=== PATIENT | male | born 1940 | race Caucasian/White ===

== ENCOUNTER → 2016-10-19 | Outpatient (REF) | payer MEDICARE ==
[2016-10-19 12:31] LABS: ALBUMIN 4.3 GM/DL (3.2-5.2); ALBUMIN/GLOBULIN RATIO 1.26 (1.00-1.93); ALKALINE PHOSPHATASE 44 U/L (45-117); ALT/SGPT 43 U/L (12-78); ANION GAP 8 MEQ/L (8-16); AST/SGOT 23 U/L (15-37); BILIRUBIN,TOTAL 0.5 MG/DL (0.2-1.0); BLOOD UREA NITROGEN 16 MG/DL (7-18); CALCIUM LEVEL 9.3 MG/DL (8.8-10.2); CARBON DIOXIDE LEVEL 30 MEQ/L (21-32); CHLORIDE LEVEL 101 MEQ/L (98-107); CHOLESTEROL LEVEL 112 MG/DL (<200); CREATININE FOR GFR 0.98 MG/DL (0.70-1.30); GLOMERULAR FILTRATION RATE > 60.0 (>42); GLUCOSE, FASTING 145 MG/DL (83-110); POTASSIUM SERUM 4.3 MEQ/L (3.5-5.1); SODIUM LEVEL 139 MEQ/L (136-145); TOTAL PROTEIN 7.7 GM/DL (6.4-8.2); TRIGLYCERIDES LEVEL 124 MG/DL (<150)
[2016-10-20 14:14] LABS: PSA % FREE 10.4 % (.); PSA FREE 0.59 ng/mL; PSA TOTAL 5.7 ng/mL (0.0-4.0)
== END ==
LOC: M SFHCCLAY 09:18
PROVIDERS: ATTEND Family Medicine
DX: E78.2 Mixed hyperlipidemia (principal); E11.9 Type 2 diabetes mellitus without complications; I10 Essential (primary) hypertension; R97.20 Elevated prostate specific antigen [PSA]

== ENCOUNTER → 2017-02-25 | Outpatient (REF) | payer MEDICARE ==
[~2017-02-25] MED LIST: ATOR1TAB21 PO; CARV6.25 PO; CLOP75TA2 PO; ELIQ5TAB PO; FLAXPOW PO; GABA-279 PO; INDA125TA PO; JANU100T PO; JARD1TAB3 PO; LOSA100T36 PO; METF500T4 PO; POTA10TAB PO
[2017-02-25 18:51] LABS: CALCIUM LEVEL 9.6 MG/DL (8.8-10.2); CREATININE FOR GFR 1.25 MG/DL (0.70-1.30); GLOMERULAR FILTRATION RATE 59.9 (>42); POTASSIUM SERUM 4.4 MEQ/L (3.5-5.1)
[2017-02-25 19:04] LABS: BASO % 0.5 % (0.0-1.0); EOS % 0.2 % (0.0-3.0); LARGE UNSTAINED CELL # 0.1 K/mm3 (0.0-0.4); LARGE UNSTAINED CELL % 1.3 % (0.0-4.0); LYMPH # 1.7 K/mm3 (1.5-4.5); LYMPH % 24.2 % (24.0-44.0); MEAN CORPUSCULAR HEMOGLOBIN 31.7 pg (27.0-33.0); MEAN CORPUSCULAR HGB CONC 33.7 g/dl (32.0-36.5); MEAN CORPUSCULAR VOLUME 94.1 fl (80.0-96.0); NEUTROPHILS % 58.8 % (36.0-66.0); PLATELET COUNT, AUTOMATED 331 k/mm3 (150-450); RED CELL DISTRIBUTION WIDTH 14.9 % (11.5-14.5); WHITE BLOOD COUNT 6.8 K/mm3 (4.0-10.0)
== END ==
LOC: M SFHCPLAZ 15:54
PROVIDERS: ATTEND Physician Assistant Medical
DX: E11.8 Type 2 diabetes mellitus with unspecified complications (principal); N18.2 Chronic kidney disease, stage 2 (mild); I25.2 Old myocardial infarction

== ENCOUNTER → 2017-03-24 | Outpatient (REF) | payer MEDICARE ==
[2017-03-24 12:13] LABS: ALBUMIN/GLOBULIN RATIO 1.33 (1.00-1.93); ALKALINE PHOSPHATASE 47 U/L (45-117); ALT/SGPT 27 U/L (12-78); ANION GAP 7 MEQ/L (8-16); AST/SGOT 18 U/L (15-37); BILIRUBIN,TOTAL 0.7 MG/DL (0.2-1.0); BLOOD UREA NITROGEN 10 MG/DL (7-18); CALCIUM LEVEL 9.1 MG/DL (8.8-10.2); CARBON DIOXIDE LEVEL 27 MEQ/L (21-32); CHLORIDE LEVEL 108 MEQ/L (98-107); CHOLESTEROL LEVEL 77 MG/DL (<200); CREATININE FOR GFR 0.96 MG/DL (0.70-1.30); GLOMERULAR FILTRATION RATE > 60.0 (>42); GLUCOSE, FASTING 100 MG/DL (83-110); MAGNESIUM LEVEL 2.3 MG/DL (1.8-2.4); PERCENT SATURATION 26.6 % (19.7-50.0); POTASSIUM SERUM 4.5 MEQ/L (3.5-5.1); SODIUM LEVEL 142 MEQ/L (136-145); TOTAL IRON BINDING CAPACITY 304 UG/DL (250-450); TRIGLYCERIDES LEVEL 135 MG/DL (<150)
[2017-03-25 14:15] LABS: PSA % FREE 8.8 % (.); PSA FREE 0.36 ng/mL; PSA TOTAL 4.1 ng/mL (0.0-4.0)
== END ==
LOC: M SFHCCLAY 09:30
PROVIDERS: ATTEND Family Medicine
DX: E78.5 Hyperlipidemia, unspecified (principal); E11.8 Type 2 diabetes mellitus with unspecified complications; I10 Essential (primary) hypertension; E55.9 Vitamin D deficiency, unspecified; N18.2 Chronic kidney disease, stage 2 (mild)

== ENCOUNTER 2017-04-23 13:06 | Outpatient (RCR) | payer MEDICARE ==
[2017-05-13] MEDS ORDERED: LOSA100T36 PO (13:32)
[2017-05-13] MEDS ORDERED: ATOR1TAB21 PO (13:32)
[2017-05-13] MEDS ORDERED: ELIQ5TAB PO (13:32)
[2017-05-13] MEDS ORDERED: JANU100T PO (13:32)
[2017-05-13] MEDS ORDERED: POTA10TAB PO (13:32)
[2017-05-13] MEDS ORDERED: GABA-279 PO (13:32)
[2017-05-13] MEDS ORDERED: CARV6.25 PO (13:32)
[2017-05-13] MEDS ORDERED: JARD1TAB3 PO (13:32)
[2017-05-13] MEDS ORDERED: METF500T4 PO (13:32)
[2017-05-13] MEDS ORDERED: CLOP75TA2 PO (13:32)
[2017-05-13] MEDS ORDERED: FLAXPOW PO (13:32)
== END 2017-04-24 ==
LOC: M CR 13:06
PROVIDERS: ATTEND Internal Medicine Cardiovascular Disease
DX: Z51.89 Encounter for other specified aftercare (principal); Z95.5 Presence of coronary angioplasty implant and graft
CPT/HCPCS: 93797; 93798; 97110; 97162; G8978; G8979

== ENCOUNTER 2017-04-23 13:45 | Outpatient (RCR) | payer MEDICARE ==
[2017-05-13] MEDS ORDERED: GABA-279 PO (13:32)
[2017-05-13] MEDS ORDERED: ELIQ5TAB PO (13:32)
[2017-05-13] MEDS ORDERED: FLAXPOW PO (13:32)
[2017-05-13] MEDS ORDERED: JANU100T PO (13:32)
[2017-05-13] MEDS ORDERED: ATOR1TAB21 PO (13:32)
[2017-05-13] MEDS ORDERED: JARD1TAB3 PO (13:32)
[2017-05-13] MEDS ORDERED: METF500T4 PO (13:32)
[2017-05-13] MEDS ORDERED: CLOP75TA2 PO (13:32)
[2017-05-13] MEDS ORDERED: CARV6.25 PO (13:32)
[2017-05-13] MEDS ORDERED: LOSA100T36 PO (13:32)
[2017-05-13] MEDS ORDERED: POTA10TAB PO (13:32)
== END 2017-04-24 ==
LOC: M PT 13:45
PROVIDERS: ATTEND Family Medicine
DX: Z51.89 Encounter for other specified aftercare (principal); M47.816 Spondylosis without myelopathy or radiculopathy, lumbar region
CPT/HCPCS: 97110; 97162; G8978; G8979

== ENCOUNTER 2017-05-14 10:18 | Day surgery (SDC) | payer MEDICARE ==
[2017-05-14] VITALS (7 sets, daily range): BP systolic 138–183; BP diastolic 60–88
[~2017-05-14] VITALS: Ht 175.3 cm; Wt 94.5 kg
[2017-05-14] MEDS: **UNRESOLVED NON-FORMULARY MED ORDER XX SCH (00:01)
[~2017-05-14 10:18] MED LIST changes: -INDA125TA PO
[2017-05-14] MEDS ORDERED: LIDOCAINE 1% SDV 5 ML VIAL SQ ONE (10:30)
[2017-05-14] MEDS ORDERED: LR 1,000 ML IV SCH ×2 (10:30→16:15)
[2017-05-14] MEDS ORDERED: VANCOMYCIN 1000 MG/20 ML VIAL (J3370) As Ordered ONE (12:15)
[2017-05-14] MEDS ORDERED: LIDOCAINE 1% SDV INJ 30 ML VIAL As Ordered ONE (12:15)
[2017-05-14] MEDS ORDERED: MUPIROCIN 2% OINT 22 GM TUBE As Ordered ONE (12:15)
[2017-05-14] MEDS ORDERED: ISOVUE-300 61% 50ML VIAL (Q9967) As Ordered ONE (12:15)
[2017-05-14] MEDS ORDERED: MIDAZOLAM INJ 2 MG/2 ML VIAL (J2250) As Ordered ONE (12:25)
[2017-05-14] MEDS ORDERED: fentaNYL 100 MCG/2 ML INJECTION (J3010) As Ordered ONE (12:25)
--- NOTE | 2017-05-14 15:14 | REP ---
PACEMAKER, FLUORO, ONE VIEW: HISTORY: Pacemaker insertion. A single radiograph was obtained of the C-arm. The patient is status post pacemaker insertion. Fluoro time: 6 minutes 23 seconds. IMPRESSION: The patient is status post pacemaker insertion. Signed by Tyrone Perez MD 05/14/2017 03:18 P
--- NOTE | 2017-05-14 15:28 | REP ---
Chest one-view HISTORY: Pacemaker insertion Comparison: 01/04/2008 Linear densities are present in the left lower lobe consistent with scar. The right lung is clear . The cardiac silhouette is enlarged. The pulmonary vasculature is normal in appearance. The patient is status post pacemaker insertion. There is no pneumothorax. Impression: 1. Cardiomegaly. 2. The patient is status post pacemaker insertion. Signed by Tyrone Perez MD 05/14/2017 03:20 P
--- NOTE | 2017-05-14 15:57 | RO ---
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 OPERATIVE PROCEDURE: Implantation of a permanent dual chamber pacemaker ([employer]). SURGEON: Rob Gillis MD SOFTWARE PERFORMANCE ENGINEER: None. ANESTHESIA: Lidocaine 1% local/monitored anesthetic care. SPECIMENS: None. ESTIMATED BLOOD LOSS: Less than 15 mL. BLOOD PRODUCTS REPLACED: None. DRAINS: None. COMPLICATIONS: None. DESCRIPTION OF OPERATION: The patient was prepped and draped over the left pectoral region. Clear non-iodine plastic film was applied over the surgical region. Lidocaine 1% was used for local anesthetic. A left subclavian venogram was performed using 20 mL consisting of three parts contrast, one part normal saline and injected via a left antecubital vein and this was used in real time to get into the left subclavian vein under fluoroscopy in real time by percutaneous technique using a micropuncture needle. This was then guidewire exchanged for a guidewire that came with one of the #8-Chadian sheaths. Next, incision was made with a PEAK PlasmaBlade through the skin to make an incision approximately 2.5 inches in length and roughly parallel to the left clavicle, 1 cm below the skin entry site of the guidewire. The PEAK PlasmaBlade was used to get through the fatty layer and the fibrous Lorie's fascia. The pacemaker pocket was then formed in a caudal direction using blunt dissection using two fingers to separate the prepectoral fascia from the Lorie's fascia. Next, the guidewire was pulled through the skin into the incision site. Next, I used another micropuncture needle and obtained separate venous access at the level of te pectoral muscle more lateral to the first guidewire using the first guidewire as a fluoroscopic marker. This was then guidewire exchanged for a guidewire that came with the other #8-Chadian sheath. Next, an #8-Chadian sheath was placed over the more lateral of the guidewires and advanced into the left subclavian vein. It was used for vein access for the right ventricle lead. The right ventricle lead was advanced into the right ventricle under fluoroscopic guidance and the first position was not satisfactory with regards to pacing threshold. The lead was unscrewed and then a second position somewhere near the right ventricle apex was used and was extended 10 turns for the [place] screw. This position was found to be electrically and anatomically satisfactory and no diaphragm stimulation could be palpated on either side at 10 volts high open pacing. The #8-Chadian sheath was broken apart and the ventricle lead was secured to the pectoral muscle using #3-0 Vicryl to secure to the pectoral muscle using there separate sutures, one for each notch. Next, the other #8-Chadian sheath was applied over the more medial of the guidewires and was used for vein access for the right atrial lead. The first position I tried for the right atrial lead was not satisfactory electrically and therefore a second position was tried. The [place] was extended 10 turns. This position was found to be electrically and anatomically satisfactory. The #8-Chadian sheath was broken apart and the atrial lead was secured to the pectoral muscle using three individual sutures consisting of #0 Ethibond. Next, another #0 Ethibond suture was placed into the pectoral muscle to serve as a tie down for the pacemaker pulse generator. Next, the excess lead material was coiled underneath the pacemaker pulse generator and placed along with the pacemaker pulse generator into the pacemaker pocket with the excess lead material and pacemaker pulse generator on top. Next, I took a medium sized TYRX antimicrobial envelope and cut it into four pieces and placed those pieces on top of the pulse generator in the pacemaker pocket. The deep layer was closed using individual sutures consisting of #2-0 Vicryl. The skin was closed using teressa. The patient tolerated the procedure well without any immediate complications. The pacemaker pulse generator implanted was a [employer] MRI, model #[id number], with serial #[id number]. The right ventricle lead implanted was a [employer] Tendril MRI, model CMS8426H, 58 cm with serial number #[id number]. Final testing in the operating room with the PSA analyzer for the right ventricle lead in bipolar configuration showed capture threshold of 0.8 volts in 0.4 ms with R wave amplitude of 19.9 mV and lead impedance of 926 ohms. The right atrial lead implanted was a [employer] Tendril MRI, model #[id number], 52 cm in length and serial #[id number]. Final testing in bipolar configuration in the operating room with the PSA analyzer for the right atrial lead showed capture threshold of 2.2 volts at 0.4 ms with P wave amplitude of 2.9 mV and lead impedance of 733 ohms.
[2017-05-14] MEDS ORDERED: fentaNYL 100 MCG/2 ML INJECTION (J3010) IV PRN (16:15)
[2017-05-14] MEDS ORDERED: ONDANSETRON 4MG/2ML VIAL (J2405) IV PRN (16:15)
[2017-05-14] MEDS ORDERED: PERCOCET 5MG/325MG TAB PO PRN (16:15)
[2017-05-14] MEDS: ACETAMINOPHEN TAB 650MG DOSE (2X325MG) PO PRN ×2 (17:52→21:51)
[2017-05-14] MEDS: metFORMIN XR 500MG TAB *GLUCOPHAGE XR PO SCH (18:11)
--- NOTE | 2017-05-14 20:13 | ECGEPIP ---
Stationary ECG Study [facility] Test Date: 2017-05-14 Pat Name: SHAI CALZADA Department: Room: - Gender: M Dead Mail Checker: NARCISO : 1940 Requested By: Rob Gillis Order Number: [id number] Reading MD: Rob Gillis Measurements Intervals [place] Rate: 84 P: 112 [place]: 90 QRS: -70 QRSD: 160 T: 113 QT: 443 QTc: 526 Interpretive Statements Sinus rhythm, P-synchronous ventricular pacing. ABNORMAL RHYTHM ECG Electronically Signed On 05-14-2017 20:13:16 EDT by Rob Gillis
[2017-05-14] MEDS ORDERED: ATORVASTATIN 20 MG TAB PO SCH (21:00)
[2017-05-14] MEDS ORDERED: GABAPENTIN 100 MG CAP PO SCH (21:00)
[2017-05-14] MEDS: CARVedilol 6.25 MG TAB PO SCH (21:41)
[2017-05-14] MEDS: POTASSIUM CITRATE 1080 MG (10MEQ) TAB PO SCH (21:42)
[2017-05-14] MEDS: ASCORBIC ACID 250 MG TAB PO SCH (21:43)
[2017-05-15 04:00] VITALS: BP 130/68
[2017-05-15] MEDS: ACETAMINOPHEN TAB 650MG DOSE (2X325MG) PO PRN (05:36)
[2017-05-15] MEDS: **UNRESOLVED NON-FORMULARY MED ORDER XX SCH (07:12)
--- NOTE | 2017-05-15 08:08 | REP ---
PA and lateral chest: Comparisons 05/14/2017. Dual-chamber pacemaker with skin teressa adjacent to the pacemaker pack is again identified. There is no pneumothorax or hemothorax. There is minor discoid atelectasis inferiorly in the left lung. Lung lopes otherwise clear. Cardiac size normal. The rich, mediastinum, and bony thorax are unremarkable. Signed by Otis Presley MD 05/15/2017 08:00 A
[2017-05-15] MEDS: metFORMIN XR 500MG TAB *GLUCOPHAGE XR PO SCH (08:33)
[2017-05-15 08:37] VITALS: BP 160/88
[2017-05-15] MEDS: CARVedilol 6.25 MG TAB PO SCH (08:37)
[2017-05-15] MEDS: ASCORBIC ACID 250 MG TAB PO SCH (08:37)
[2017-05-15] MEDS: POTASSIUM CITRATE 1080 MG (10MEQ) TAB PO SCH (08:37)
[2017-05-15] MEDS ORDERED: CLOPIDOGREL 75 MG TAB PO SCH (09:00)
[2017-05-15] MEDS ORDERED: LOSARTAN 50 MG TAB PO SCH (09:00)
[2017-05-15] MEDS ORDERED: SITagliptin 50 MG TAB (JANUVIA) PO SCH (09:00)
[2017-05-15] MEDS ORDERED: INDAPAMIDE 1.25MG TABLET PO SCH (09:00)
[2017-05-15] MEDS ORDERED: INDA125TA PO (12:12)
== END 2017-05-15 13:56 | disposition home or self-care (01) ==
LOC: M SDC 10:18 → M PCU 16:50 → M SDC 05-15 13:56
PROVIDERS: ATTEND Internal Medicine Cardiovascular Disease
DX: R55 Syncope and collapse (principal); I45.10 Unspecified right bundle-branch block; I45.2 Bifascicular block; I25.10 Atherosclerotic heart disease of native coronary artery without angina pectoris; I21.4 Non-ST elevation (NSTEMI) myocardial infarction; I35.0 Nonrheumatic aortic (valve) stenosis; I11.9 Hypertensive heart disease without heart failure; E66.9 Obesity, unspecified; E11.9 Type 2 diabetes mellitus without complications; N20.0 Calculus of kidney; E78.00 Pure hypercholesterolemia, unspecified; M12.9 Arthropathy, unspecified; G43.909 Migraine, unspecified, not intractable, without status migrainosus; Z91.048 Other nonmedicinal substance allergy status; Z79.899 Other long term (current) drug therapy; Z79.01 Long term (current) use of anticoagulants; Z86.718 Personal history of other venous thrombosis and embolism; Z87.442 Personal history of urinary calculi; Z95.5 Presence of coronary angioplasty implant and graft; Z85.828 Personal history of other malignant neoplasm of skin
CPT/HCPCS: 33208; 71010; 71020; 76000; 93005; C1785; C1882; C1898; J0690; J2250; J3010; Q9967

== ENCOUNTER 2017-06-21 13:45 | Outpatient (RCR) | payer MEDICARE ==
[~2017-06-21 13:45] MED LIST changes: +INDA125TA PO
== END 2017-06-24 ==
LOC: M PT 13:45
PROVIDERS: ATTEND Family Medicine
DX: Z51.89 Encounter for other specified aftercare (principal); M47.816 Spondylosis without myelopathy or radiculopathy, lumbar region
CPT/HCPCS: 97110; 97112; 97162; G8978; G8979; G8980

== ENCOUNTER 2017-06-23 14:58 | Outpatient (RCR) | payer MEDICARE | END 2017-06-24 | LOC: M CR 14:58 | PROVIDERS: ATTEND Internal Medicine Cardiovascular Disease | DX: Z95.5 Presence of coronary angioplasty implant and graft (principal) ==

== ENCOUNTER → 2017-10-04 | Outpatient (REF) | payer MEDICARE ==
[2017-10-04 11:18] LABS: BASO % 0.4 % (0.0-1.0); HEMATOCRIT 43.5 % (42.0-52.0); HEMOGLOBIN 14.3 g/dl (14.0-18.0); LYMPH # 1.4 10^3/uL (1.5-4.5); LYMPH % 29.3 % (24.0-44.0); MEAN CORPUSCULAR HEMOGLOBIN 31.8 pg (27.0-33.0); MEAN CORPUSCULAR HGB CONC 32.9 g/dl (32.0-36.5); MEAN CORPUSCULAR VOLUME 96.7 fl (80.0-96.0); MONO % 20.2 % (0.0-5.0); NEUTROPHILS # 2.4 10^3/uL (1.8-7.7); NEUTROPHILS % 49.1 % (36.0-66.0); PLATELET COUNT, AUTOMATED 179 10^3/uL (150-450); RED CELL DISTRIBUTION WIDTH 13.3 % (11.5-14.5); WHITE BLOOD COUNT 4.8 10^3/uL (4.0-10.0)
[2017-10-04 11:47] LABS: ESTIMATED AVERAGE GLUCOSE 140 MG/DL (60-110); HEMOGLOBIN A1c 6.5 %
[2017-10-04 11:55] LABS: ALBUMIN 4.4 GM/DL (3.2-5.2); ALBUMIN/GLOBULIN RATIO 1.52 (1.00-1.93); ALKALINE PHOSPHATASE 37 U/L (45-117); ALT/SGPT 49 U/L (12-78); ANION GAP 8 MEQ/L (8-16); AST/SGOT 27 U/L (7-37); BILIRUBIN,TOTAL 0.5 MG/DL (0.2-1.0); BLOOD UREA NITROGEN 18 MG/DL (7-18); CALCIUM LEVEL 9.3 MG/DL (8.8-10.2); CARBON DIOXIDE LEVEL 29 MEQ/L (21-32); CHLORIDE LEVEL 102 MEQ/L (98-107); CREATININE FOR GFR 0.95 MG/DL (0.70-1.30); FERRITIN 70 NG/ML (26-388); GLOMERULAR FILTRATION RATE > 60.0 (>42); GLUCOSE, FASTING 123 MG/DL (70-100); IRON (FE) 80 UG/DL (65-175); MAGNESIUM LEVEL 2.1 MG/DL (1.8-2.4); PERCENT SATURATION 24.5 % (19.7-50.0); SODIUM LEVEL 139 MEQ/L (136-145); TOTAL IRON BINDING CAPACITY 326 UG/DL (250-450); TOTAL PROTEIN 7.3 GM/DL (6.4-8.2)
[2017-10-04 12:40] LABS: PTH INTACT 91.6 PG/ML (18.5-88.0); TOTAL 25(OH) VITAMIN D 25.1 NG/ML (30.0-100.0); VITAMIN B12 LEVEL 194 PG/ML (247-911)
== END ==
LOC: M SFHCPLAZ 09:05 → M SFHCCLAY 09:18
DX: Z86.711 Personal history of pulmonary embolism (principal); N18.2 Chronic kidney disease, stage 2 (mild); E11.8 Type 2 diabetes mellitus with unspecified complications; E55.9 Vitamin D deficiency, unspecified
CPT/HCPCS: 83550

== ENCOUNTER → 2018-02-04 | Outpatient (REF) | payer MEDICARE ==
[2018-02-04 11:36] LABS: BASO % 0.3 % (0.0-1.0); HEMATOCRIT 41.5 % (42.0-52.0); HEMOGLOBIN 14.2 g/dl (13.5-17.5); IMMATURE GRANULOCYTE % 0.6 % (0-3.0); LYMPH # 1.6 10^3/uL (1.5-4.5); LYMPH % 22.9 % (24.0-44.0); MEAN CORPUSCULAR HEMOGLOBIN 32.2 pg (27.0-33.0); MEAN CORPUSCULAR HGB CONC 34.2 g/dl (32.0-36.5); MEAN CORPUSCULAR VOLUME 94.1 fl (80.0-96.0); MONO # 1.2 10^3/uL (0.0-0.8); MONO % 17.6 % (0.0-5.0); NEUTROPHILS % 58.6 % (36.0-66.0); PLATELET COUNT, AUTOMATED 217 10^3/uL (150-450); RED BLOOD COUNT 4.41 10^6/uL (4.30-6.10); RED CELL DISTRIBUTION WIDTH 13.6 % (11.5-14.5); WHITE BLOOD COUNT 6.8 10^3/uL (4.0-10.0)
[2018-02-04 11:42] LABS: HEMATOCRIT 41.9 % (42.0-52.0)
[2018-02-04 11:55] LABS: ESTIMATED AVERAGE GLUCOSE 160 MG/DL (60-110); HEMOGLOBIN A1c 7.2 %
[2018-02-04 12:09] LABS: ALBUMIN 4.2 GM/DL (3.2-5.2); ALKALINE PHOSPHATASE 41 U/L (45-117); ALT/SGPT 39 U/L (12-78); ANION GAP 9 MEQ/L (8-16); AST/SGOT 18 U/L (7-37); BILIRUBIN,TOTAL 0.9 MG/DL (0.2-1.0); BLOOD UREA NITROGEN 18 MG/DL (7-18); CALCIUM LEVEL 9.4 MG/DL (8.8-10.2); CARBON DIOXIDE LEVEL 27 MEQ/L (21-32); CHLORIDE LEVEL 104 MEQ/L (98-107); CREATININE FOR GFR 0.95 MG/DL (0.70-1.30); GLOMERULAR FILTRATION RATE > 60.0 (>42); GLUCOSE, FASTING 129 MG/DL (70-100); POTASSIUM SERUM 4.6 MEQ/L (3.5-5.1); PROSTATIC SPECIFIC AG MONITOR 7.48 NG/ML (< 4.0); SODIUM LEVEL 140 MEQ/L (136-145); TOTAL PROTEIN 7.7 GM/DL (6.4-8.2)
[2018-02-04 12:14] LABS: VITAMIN B12 LEVEL 584 PG/ML (247-911)
[2018-02-04 13:38] LABS: PRETREATED FOLATE FOR RBCFOL 16.3 NG/ML; RBC FOLATE 816.9 NG/ML (280-791)
[2018-02-07 14:58] LABS: ALBUMIN 4.54 GM/DL (3.29-5.55); ALPHA-1-GLOBULIN % 3.6 % (2.9-4.9); ALPHA-1-GLOBULINS 0.28 GM/DL (0.17-0.41); ALPHA-2-GLOBULINS 0.99 GM/DL (0.42-0.99); ALPHA-2-GLOBULINS % 12.9 % (7.1-11.8); BETA-1-GLOBULINS % 6.5 % (4.7-7.2); BETA-2-GLOBULINS 0.35 GM/DL (0.19-0.55); BETA-2-GLOBULINS % 4.6 % (3.2-6.5); GAMMA GLOBULIN % 13.4 % (11.1-18.8); GAMMA GLOBULINS 1.03 GM/DL (0.65-1.58)
== END ==
LOC: M SFHCCLAY 09:25
DX: E53.8 Deficiency of other specified B group vitamins (principal); E11.8 Type 2 diabetes mellitus with unspecified complications; R97.20 Elevated prostate specific antigen [PSA]
CPT/HCPCS: 84165

== ENCOUNTER → 2018-02-22 | Outpatient (REF) | payer MEDICARE, OTHER | LOC: M SMT 13:09 | DX: R97.20 Elevated prostate specific antigen [PSA] (principal); Z79.899 Other long term (current) drug therapy | CPT/HCPCS: 87086 ==

== ENCOUNTER → 2018-03-10 | Outpatient (CLI) | payer OTHER | LOC: M RAD 11:47 | DX: M47.816 Spondylosis without myelopathy or radiculopathy, lumbar region (principal) | CPT/HCPCS: 72131 ==

== ENCOUNTER → 2018-03-22 | Outpatient (CLI) | payer OTHER | LOC: M SMT PRO 09:10 | DX: C61 Malignant neoplasm of prostate (principal) | CPT/HCPCS: G0416 ==

== ENCOUNTER → 2018-03-30 | Outpatient (CLI) | payer OTHER ==
[2018-03-30 18:45] LABS: ANION GAP 11 MEQ/L (8-16); BLOOD UREA NITROGEN 23 MG/DL (7-18); CALCIUM LEVEL 9.6 MG/DL (8.8-10.2); CARBON DIOXIDE LEVEL 26 MEQ/L (21-32); CHLORIDE LEVEL 104 MEQ/L (98-107); CREATININE FOR GFR 1.03 MG/DL (0.70-1.30); GLOMERULAR FILTRATION RATE > 60.0 (>42); GLUCOSE, FASTING 126 MG/DL (70-100); POTASSIUM SERUM 4.3 MEQ/L (3.5-5.1); SODIUM LEVEL 141 MEQ/L (136-145)
== END ==
LOC: M SMT 13:42
DX: C61 Malignant neoplasm of prostate (principal)
CPT/HCPCS: 80048

== ENCOUNTER → 2018-04-26 | Outpatient (CLI) | payer OTHER ==
[~2018-04-26] MED LIST changes: -ATOR1TAB21 PO; -CARV6.25 PO; -CLOP75TA2 PO; -ELIQ5TAB PO; -FLAXPOW PO; -GABA-279 PO; -INDA125TA PO; +ISOVUE-370 76% 100ML VIAL (Q9967) As Ordered; -JANU100T PO; -JARD1TAB3 PO; -LOSA100T36 PO; -METF500T4 PO; -POTA10TAB PO
== END ==
LOC: M RAD 08:34
DX: C61 Malignant neoplasm of prostate (principal)
CPT/HCPCS: Q9967

== ENCOUNTER 2018-06-23 10:50 | Inpatient (IN) | payer OTHER ==
[~2018-06-23 10:50] MED LIST changes: -ISOVUE-370 76% 100ML VIAL (Q9967) As Ordered; +LR 1,000 ML IV
[2018-06-23] MEDS ORDERED: PROPOFOL 200 MG/20 ML VIAL As Ordered (10:55)
[2018-06-23] MEDS ORDERED: fentaNYL 250 MCG/5 ML INJECTION (J3010) As Ordered (10:55)
[2018-06-23] MEDS ORDERED: ROCURONIUM BROMIDE 50 MG/5 ML VIAL As Ordered ×2 (10:55→14:47)
[2018-06-23] MEDS ORDERED: MIDAZOLAM INJ 2 MG/2 ML VIAL (J2250) As Ordered (10:55)
[2018-06-23] MEDS ORDERED: LIDOCAINE 2% INJ 100 MG/5 ML SDV (FOR ANES.) As Ordered (10:55)
[2018-06-23] MEDS ORDERED: dexameTHASONE 4 MG/ML 1ML VIAL (J1100) As Ordered (10:55)
[2018-06-23] MEDS ORDERED: ceFAZolin 2 GM/D5W 50 ML IV BAG (J0690 PER 500MG) As Ordered (11:06)
[2018-06-23 11:47] LABS: BEDSIDE GLUCOSE 161 MG/DL (83-110)
[2018-06-23] MEDS ORDERED: ACETAMINOPHEN TAB 650MG DOSE (2X325MG) PO (13:15)
[2018-06-23] MEDS ORDERED: MORPHINE 4 MG/ML 1ML VIAL/SYRINGE (J2270) IV (13:15)
[2018-06-23] MEDS: HEPARIN SOD (PORCINE) 5000 UNITS/ML VIAL SQ (13:20)
[2018-06-23] MEDS ORDERED: HYDROmorphone HCL 2 MG/ML 1ML VIAL (J1170) As Ordered (14:00)
[2018-06-23] MEDS ORDERED: METOCLOPRAMIDE INJ 10MG/2ML VIAL (J2765) As Ordered (14:09)
[2018-06-23] MEDS ORDERED: ePHEDrine SULFATE 25 MG/5 ML(5MG/ML) SYRINGE As Ordered (14:13)
[2018-06-23] MEDS ORDERED: PHENYLephrine HCL 500 MCG/5 ML (100MCG/ML) SYRINGE (J2370) As Ordered ×2 (14:13→16:43)
[2018-06-23] MEDS ORDERED: ONDANSETRON 4MG/2ML VIAL (J2405) As Ordered (14:16)
[2018-06-23] MEDS ORDERED: GLYCOPYRROLATE INJ 0.2 MG/ML 2 ML VIAL As Ordered (17:56)
[2018-06-23] MEDS: LIDOCAINE 1% SDV INJ 30 ML VIAL As Ordered (18:15)
[2018-06-23] MEDS: BUPIVACAINE HCL 0.25% 30 ML VIAL As Ordered (18:15)
[2018-06-23] MEDS: PERCOCET 5MG/325MG TAB PO ×2 (18:57→22:49)
[2018-06-23] MEDS ORDERED: fentaNYL 100 MCG/2 ML INJECTION (J3010) IV ×2 (19:00→21:00)
[2018-06-23] MEDS ORDERED: PERCOCET 5MG/325MG TAB PO ×2 (19:00→21:00)
[2018-06-23] MEDS: LR 1,000 ML IV ×2 (19:00→21:00)
[2018-06-23 19:01] LABS: HEMATOCRIT 41.8 % (42.0-52.0); HEMOGLOBIN 14.2 g/dl (13.5-17.5); MEAN CORPUSCULAR HEMOGLOBIN 32.9 pg (27.0-33.0); PLATELET COUNT, AUTOMATED 217 10^3/uL (150-450); RED BLOOD COUNT 4.31 10^6/uL (4.30-6.10); RED CELL DISTRIBUTION WIDTH 13.2 % (11.5-14.5); WHITE BLOOD COUNT 10.1 10^3/uL (4.0-10.0)
[2018-06-23 19:25] LABS: ANION GAP 9 MEQ/L (8-16); BLOOD UREA NITROGEN 20 MG/DL (7-18); CALCIUM LEVEL 8.6 MG/DL (8.8-10.2); CARBON DIOXIDE LEVEL 27 MEQ/L (21-32); CHLORIDE LEVEL 100 MEQ/L (98-107); CREATININE FOR GFR 1.46 MG/DL (0.70-1.30); GLUCOSE, FASTING 214 MG/DL (70-100); POTASSIUM SERUM 4.5 MEQ/L (3.5-5.1); SODIUM LEVEL 136 MEQ/L (136-145)
[2018-06-23] MEDS: NS 1,000 ML IV (19:53)
[2018-06-23] MEDS: GABAPENTIN 100 MG CAP PO (21:30)
[2018-06-23] MEDS: ATORVASTATIN 20 MG TAB PO (21:30)
[2018-06-23] MEDS: DOCUSATE SODIUM 100 MG CAP PO (21:30)
[2018-06-23] MEDS: CARVedilol 6.25 MG TAB PO (21:31)
[2018-06-23] MEDS: ceFAZolin SOD 1 GM in D5W MINI-BAG PLUS 50 ML IV (21:33)
[2018-06-23] MEDS: HEPARIN SOD (PORCINE) 5000 UNITS/ML VIAL SC (21:48)
[2018-06-23] MEDS: TELMISARTAN 20 MG TAB PO (22:07)
[2018-06-23] MEDS: ONDANSETRON 4MG/2ML VIAL (J2405) IV (22:45)
[2018-06-24] MEDS: NS 1,000 ML IV ×2 (03:47→23:22)
[2018-06-24] MEDS: PERCOCET 5MG/325MG TAB PO ×3 (03:47→21:08)
[2018-06-24] MEDS: ceFAZolin SOD 1 GM in D5W MINI-BAG PLUS 50 ML IV (05:23)
[2018-06-24] MEDS: HEPARIN SOD (PORCINE) 5000 UNITS/ML VIAL SC ×3 (05:23→21:07)
[2018-06-24 06:56] LABS: HEMATOCRIT 37.5 % (42.0-52.0); HEMOGLOBIN 12.7 g/dl (13.5-17.5); MEAN CORPUSCULAR HEMOGLOBIN 32.9 pg (27.0-33.0); MEAN CORPUSCULAR HGB CONC 33.9 g/dl (32.0-36.5); MEAN CORPUSCULAR VOLUME 97.2 fl (80.0-96.0); PLATELET COUNT, AUTOMATED 184 10^3/uL (150-450); RED BLOOD COUNT 3.86 10^6/uL (4.30-6.10); RED CELL DISTRIBUTION WIDTH 13.2 % (11.5-14.5); WHITE BLOOD COUNT 12.6 10^3/uL (4.0-10.0)
[2018-06-24 07:09] LABS: ANION GAP 10 MEQ/L (8-16); BLOOD UREA NITROGEN 24 MG/DL (7-18); CALCIUM LEVEL 7.8 MG/DL (8.8-10.2); CARBON DIOXIDE LEVEL 24 MEQ/L (21-32); CHLORIDE LEVEL 101 MEQ/L (98-107); CREATININE FOR GFR 1.66 MG/DL (0.70-1.30); GLOMERULAR FILTRATION RATE 43.1 (>42); GLUCOSE, FASTING 191 MG/DL (70-100); POTASSIUM SERUM 4.5 MEQ/L (3.5-5.1); SODIUM LEVEL 135 MEQ/L (136-145)
[2018-06-24] MEDS: INDAPAMIDE 1.25MG TABLET PO ×2 (09:00→18:27)
[2018-06-24] MEDS ORDERED: GLUCAGON FOR INJ 1 MG VIAL (J1610) SC (09:30)
[2018-06-24] MEDS ORDERED: GLUCOSE 4 GM CHEW TABLET PO (09:30)
[2018-06-24] MEDS ORDERED: DEXTROSE 50% 50 ML SYRINGE IV (09:30)
[2018-06-24] MEDS: ASPIRIN 81 MG ENTERIC TAB PO (10:04)
[2018-06-24] MEDS: ONDANSETRON 4MG/2ML VIAL (J2405) IV (10:04)
[2018-06-24] MEDS: DOCUSATE SODIUM 100 MG CAP PO ×2 (10:04→21:09)
[2018-06-24] MEDS: CARVedilol 6.25 MG TAB PO ×2 (10:05→21:12)
[2018-06-24 11:35] LABS: BEDSIDE GLUCOSE 184 MG/DL (83-110)
[2018-06-24] MEDS: HumaLOG INSULIN (NovoLOG) PER UNIT SC ×3 (13:55→21:00)
[2018-06-24 15:07] LABS: ANION GAP 9 MEQ/L (8-16); BLOOD UREA NITROGEN 24 MG/DL (7-18); CALCIUM LEVEL 7.7 MG/DL (8.8-10.2); CARBON DIOXIDE LEVEL 23 MEQ/L (21-32); CHLORIDE LEVEL 101 MEQ/L (98-107); CREATININE FOR GFR 1.66 MG/DL (0.70-1.30); GLOMERULAR FILTRATION RATE 43.1 (>42); GLUCOSE, FASTING 183 MG/DL (70-100); POTASSIUM SERUM 4.7 MEQ/L (3.5-5.1); SODIUM LEVEL 133 MEQ/L (136-145)
[2018-06-24 16:52] LABS: BEDSIDE GLUCOSE 177 MG/DL (83-110)
[2018-06-24 19:55] LABS: BEDSIDE GLUCOSE 153 MG/DL (83-110)
[2018-06-24] MEDS: ATORVASTATIN 20 MG TAB PO (21:10)
[2018-06-24] MEDS: GABAPENTIN 100 MG CAP PO (21:12)
[2018-06-24] MEDS: TELMISARTAN 20 MG TAB PO (21:12)
[2018-06-25] MEDS: PERCOCET 5MG/325MG TAB PO ×4 (04:09→21:09)
[2018-06-25 05:26] LABS: HEMATOCRIT 35.2 % (42.0-52.0); HEMOGLOBIN 11.8 g/dl (13.5-17.5); MEAN CORPUSCULAR HEMOGLOBIN 34.1 pg (27.0-33.0); MEAN CORPUSCULAR HGB CONC 33.5 g/dl (32.0-36.5); MEAN CORPUSCULAR VOLUME 101.7 fl (80.0-96.0); PLATELET COUNT, AUTOMATED 152 10^3/uL (150-450); RED BLOOD COUNT 3.46 10^6/uL (4.30-6.10); RED CELL DISTRIBUTION WIDTH 13.8 % (11.5-14.5); WHITE BLOOD COUNT 17.3 10^3/uL (4.0-10.0)
[2018-06-25] MEDS: HEPARIN SOD (PORCINE) 5000 UNITS/ML VIAL SC ×3 (06:01→21:11)
[2018-06-25 06:59] LABS: ANION GAP 10 MEQ/L (8-16); BLOOD UREA NITROGEN 30 MG/DL (7-18); CALCIUM LEVEL 7.9 MG/DL (8.8-10.2); CARBON DIOXIDE LEVEL 17 MEQ/L (21-32); CHLORIDE LEVEL 108 MEQ/L (98-107); CREATININE FOR GFR 2.41 MG/DL (0.70-1.30); GLUCOSE, FASTING 144 MG/DL (70-100); POTASSIUM SERUM 4.7 MEQ/L (3.5-5.1); SODIUM LEVEL 135 MEQ/L (136-145)
[2018-06-25] MEDS: DOCUSATE SODIUM 100 MG CAP PO ×2 (08:40→21:05)
[2018-06-25] MEDS: ASPIRIN 81 MG ENTERIC TAB PO (08:41)
[2018-06-25] MEDS: HumaLOG INSULIN (NovoLOG) PER UNIT SC ×4 (08:42→21:00)
[2018-06-25] MEDS: INDAPAMIDE 1.25MG TABLET PO (08:42)
[2018-06-25] MEDS: CARVedilol 6.25 MG TAB PO ×2 (08:43→21:06)
[2018-06-25 11:54] LABS: BEDSIDE GLUCOSE 162 MG/DL (83-110)
[2018-06-25] MEDS: MAALOX 30 ML SUSP *UDC PO (16:46)
[2018-06-25 16:52] LABS: BEDSIDE GLUCOSE 168 MG/DL (83-110)
[2018-06-25 17:18] LABS: CREATININE BF 27.5 MG/DL (NOT ESTABLISHED); SOURCE, BODY FLUID CREATININE PERITONEAL
[2018-06-25 20:40] LABS: BEDSIDE GLUCOSE 175 MG/DL (83-110)
[2018-06-25] MEDS: GABAPENTIN 100 MG CAP PO (21:05)
[2018-06-25] MEDS: ATORVASTATIN 20 MG TAB PO (21:06)
[2018-06-25] MEDS: TELMISARTAN 20 MG TAB PO (21:07)
[2018-06-25] MEDS: NS 1,000 ML IV (21:11)
[2018-06-26] MEDS: HEPARIN SOD (PORCINE) 5000 UNITS/ML VIAL SC ×3 (05:22→21:50)
[2018-06-26 05:40] LABS: HEMATOCRIT 31.5 % (42.0-52.0); HEMOGLOBIN 10.5 g/dl (13.5-17.5); MEAN CORPUSCULAR HGB CONC 33.3 g/dl (32.0-36.5); MEAN CORPUSCULAR VOLUME 99.1 fl (80.0-96.0); PLATELET COUNT, AUTOMATED 148 10^3/uL (150-450); RED BLOOD COUNT 3.18 10^6/uL (4.30-6.10); RED CELL DISTRIBUTION WIDTH 13.6 % (11.5-14.5); WHITE BLOOD COUNT 11.2 10^3/uL (4.0-10.0)
[2018-06-26 05:56] LABS: ANION GAP 6 MEQ/L (8-16); BLOOD UREA NITROGEN 32 MG/DL (7-18); CARBON DIOXIDE LEVEL 26 MEQ/L (21-32); CHLORIDE LEVEL 99 MEQ/L (98-107); CREATININE FOR GFR 1.96 MG/DL (0.70-1.30); GLOMERULAR FILTRATION RATE 35.6 (>42); GLUCOSE, FASTING 119 MG/DL (70-100); POTASSIUM SERUM 3.9 MEQ/L (3.5-5.1); SODIUM LEVEL 131 MEQ/L (136-145)
[2018-06-26] MEDS: HumaLOG INSULIN (NovoLOG) PER UNIT SC ×4 (08:02→20:19)
[2018-06-26] MEDS: DOCUSATE SODIUM 100 MG CAP PO ×2 (08:02→20:18)
[2018-06-26] MEDS: ASPIRIN 81 MG ENTERIC TAB PO (08:02)
[2018-06-26] MEDS: INDAPAMIDE 1.25MG TABLET PO (08:03)
[2018-06-26] MEDS: PERCOCET 5MG/325MG TAB PO ×3 (08:04→20:19)
[2018-06-26] MEDS: CARVedilol 6.25 MG TAB PO ×2 (08:04→20:19)
[2018-06-26 11:58] LABS: BEDSIDE GLUCOSE 164 MG/DL (83-110)
[2018-06-26] MEDS: NS 1,000 ML IV (13:05)
[2018-06-26 16:40] LABS: BEDSIDE GLUCOSE 155 MG/DL (83-110)
[2018-06-26] MEDS: MAALOX 30 ML SUSP *UDC PO ×2 (18:19→21:50)
[2018-06-26 20:08] LABS: BEDSIDE GLUCOSE 183 MG/DL (83-110)
[2018-06-26] MEDS: TELMISARTAN 20 MG TAB PO (20:18)
[2018-06-26] MEDS: ATORVASTATIN 20 MG TAB PO (20:18)
[2018-06-26] MEDS: GABAPENTIN 100 MG CAP PO (20:18)
[2018-06-27] MEDS: PERCOCET 5MG/325MG TAB PO ×2 (01:01→05:55)
[2018-06-27] MEDS: MAALOX 30 ML SUSP *UDC PO (05:54)
[2018-06-27] MEDS: HEPARIN SOD (PORCINE) 5000 UNITS/ML VIAL SC (05:55)
[2018-06-27 06:00] LABS: HEMOGLOBIN 11.9 g/dl (13.5-17.5); MEAN CORPUSCULAR HEMOGLOBIN 32.7 pg (27.0-33.0); MEAN CORPUSCULAR VOLUME 96.2 fl (80.0-96.0); PLATELET COUNT, AUTOMATED 192 10^3/uL (150-450); RED BLOOD COUNT 3.64 10^6/uL (4.30-6.10); RED CELL DISTRIBUTION WIDTH 13.2 % (11.5-14.5); WHITE BLOOD COUNT 11.3 10^3/uL (4.0-10.0)
[2018-06-27 06:17] LABS: ANION GAP 6 MEQ/L (8-16); BLOOD UREA NITROGEN 32 MG/DL (7-18); CARBON DIOXIDE LEVEL 27 MEQ/L (21-32); CHLORIDE LEVEL 97 MEQ/L (98-107); CREATININE FOR GFR 1.56 MG/DL (0.70-1.30); GLOMERULAR FILTRATION RATE 46.3 (>42); GLUCOSE, FASTING 171 MG/DL (70-100); POTASSIUM SERUM 4.3 MEQ/L (3.5-5.1); SODIUM LEVEL 130 MEQ/L (136-145)
[2018-06-27] MEDS: HumaLOG INSULIN (NovoLOG) PER UNIT SC ×2 (08:47→12:02)
[2018-06-27] MEDS: ASPIRIN 81 MG ENTERIC TAB PO (08:48)
[2018-06-27] MEDS: INDAPAMIDE 1.25MG TABLET PO (08:48)
[2018-06-27] MEDS: DOCUSATE SODIUM 100 MG CAP PO (08:48)
[2018-06-27] MEDS: CARVedilol 6.25 MG TAB PO (08:49)
[2018-06-27] MEDS: NS 1,000 ML IV (10:22)
[2018-06-27 10:56] LABS: CREATININE BF 4.9 MG/DL (NOT ESTABLISHED); SOURCE, BODY FLUID CREATININE PERITONEAL
[2018-06-27 11:23] LABS: BEDSIDE GLUCOSE 154 MG/DL (83-110)
== END 2018-06-27 14:53 | disposition home health service (06) | DRG 708 ==
LOC: M OR 10:50 → M MSPAV 19:20
PROVIDERS: Urology
PROC: 0VT04ZZ Resection of Prostate, Percutaneous Endoscopic Approach (ICD-10-PCS; principal; 2018-06-23 13:00)
PROC: 07BC4ZX Excision of Pelvis Lymphatic, Percutaneous Endoscopic Approach, Diagnostic (ICD-10-PCS; 2018-06-23 13:00)
PROC: 8E0W4CZ Robotic Assisted Procedure of Trunk Region, Percutaneous Endoscopic Approach (ICD-10-PCS; 2018-06-23 13:00)
PROC: 0DBE4ZX Excision of Large Intestine, Percutaneous Endoscopic Approach, Diagnostic (ICD-10-PCS; 2018-06-23 13:00)
DX: C61 Malignant neoplasm of prostate (principal); I13.10 Hypertensive heart and chronic kidney disease without heart failure, with stage 1 through stage 4 chronic kidney disease, or unspecified chronic kidney disease; N99.89 Other postprocedural complications and disorders of genitourinary system; I25.10 Atherosclerotic heart disease of native coronary artery without angina pectoris; E11.22 Type 2 diabetes mellitus with diabetic chronic kidney disease; E78.5 Hyperlipidemia, unspecified; E66.9 Obesity, unspecified; M17.0 Bilateral primary osteoarthritis of knee; K75.81 Nonalcoholic steatohepatitis (NASH); E55.9 Vitamin D deficiency, unspecified; K21.9 Gastro-esophageal reflux disease without esophagitis; H93.13 Tinnitus, bilateral; K63.9 Disease of intestine, unspecified; N18.2 Chronic kidney disease, stage 2 (mild); E53.8 Deficiency of other specified B group vitamins; I25.2 Old myocardial infarction; M47.816 Spondylosis without myelopathy or radiculopathy, lumbar region; Z95.0 Presence of cardiac pacemaker; Z95.5 Presence of coronary angioplasty implant and graft; Z88.8 Allergy status to other drugs, medicaments and biological substances; Z68.32 Body mass index [BMI] 32.0-32.9, adult; Z86.711 Personal history of pulmonary embolism; Z85.828 Personal history of other malignant neoplasm of skin

== ENCOUNTER → 2018-07-12 | Outpatient (CLI) | payer OTHER ==
[~2018-07-12] MED LIST changes: +8 HO650T2 PO; +AMLO2.5T2 PO; +ASPI81CH PO; +ATOR1TAB21 PO; +CARV6.25 PO; +CIPR500T3 PO; +CLOP75TA2 PO; +COLA100C5 PO; +CYSTO-CONRAY II 17.2% 250ML VIAL (Q9958) As Ordered ONE; +ELIQ5TAB PO; +FARX1TAB3 PO; +FLAXPOW PO; +FLON1SPR NARES; +GABA-1171 PO; +INDA125TA PO; +JANU100T PO; +JARD1TAB3 PO; +LOSA-4 PO; -LR 1,000 ML IV; +METF500T4 PO; +OXYC1TAB23 PO; +POTA10808 PO; +TELM1TAB37 PO; +VALS1TAB48 PO; +VITA100072 PO; +VITA50005 PO
--- NOTE | 2018-07-12 17:15 | REP ---
CYSTOGRAM The procedure was performed under the direct supervision of Dr. Vo. The images were reviewed with Dr. Vo. The patient arrived in the department with an indwelling Tatum catheter. Graph the junior accounting clerk film shows a surgical drain overlying the left pelvis. 175 ml of Cysto-Conray II was instilled into the bladder in a retrograde flow. There is filling of the bladder as well as an irregular shaped cavity posterior and inferior to the bladder. The Tatum balloon lies in the area of the posterior urethra. There is no free extravasation identified. There is no postvoid residual. Impression: There is filling of the bladder as well as an irregular shaped cavity posterior and inferior to the bladder. The Tatum balloon lies in the area of the posterior urethra. There is no free extravasation identified. There is no postvoid residual. 0.2 minutes of fluoroscopy time was utilized for this procedure. Reviewed by KEVIN Mars 07/12/2018 04:22 P Electronically Signed by Quentin Vo MD 07/12/2018 05:07 P
== END ==
LOC: M RADPRO 14:05
PROVIDERS: ATTEND Urology
DX: R32 Unspecified urinary incontinence (principal)
CPT/HCPCS: 51600; 74430; Q9958

== ENCOUNTER → 2018-10-24 | Outpatient (REF) | payer MEDICARE ==
[~2018-10-24] MED LIST changes: -AMLO2.5T2 PO; +AMLO2.5T3 PO; -CYSTO-CONRAY II 17.2% 250ML VIAL (Q9958) As Ordered ONE; -LOSA-4 PO; +LOSA100T50 PO
== END ==
LOC: M SFHCCLAY 12:16
PROVIDERS: ATTEND Urology
DX: C61 Malignant neoplasm of prostate (principal)

== ENCOUNTER → 2018-11-04 | Outpatient (REF) | payer MEDICARE ==
[~2018-11-04] MED LIST changes: -ASPI81CH PO; +ASPI81CH49 PO; -VALS1TAB48 PO; +VALS1TAB68 PO; +VITA100018 PO; -VITA100072 PO
== END ==
LOC: M SMT 13:32
PROVIDERS: ATTEND Urology
DX: R30.0 Dysuria (principal)
CPT/HCPCS: 87086; G0463

== ENCOUNTER → 2018-12-05 | Outpatient (REF) | payer MEDICARE ==
[2018-12-05 12:05] LABS: BASO % 0.3 % (0.0-1.0); EOS % 0.1 % (0.0-3.0); HEMATOCRIT 41.2 % (42.0-52.0); HEMOGLOBIN 13.4 g/dl (13.5-17.5); LYMPH # 1.7 10^3/uL (1.5-4.5); LYMPH % 24.4 % (24.0-44.0); MEAN CORPUSCULAR HEMOGLOBIN 31.4 pg (27.0-33.0); MEAN CORPUSCULAR HGB CONC 32.5 g/dl (32.0-36.5); MEAN CORPUSCULAR VOLUME 96.5 fl (80.0-96.0); MONO # 1.4 10^3/uL (0.0-0.8); MONO % 20.8 % (0.0-5.0); NEUTROPHILS # 3.7 10^3/uL (1.8-7.7); NEUTROPHILS % 53.5 % (36.0-66.0); PLATELET COUNT, AUTOMATED 192 10^3/uL (150-450); RED BLOOD COUNT 4.27 10^6/uL (4.30-6.10); WHITE BLOOD COUNT 6.9 10^3/uL (4.0-10.0)
[2018-12-05 12:08] LABS: ALT/SGPT 41 U/L (12-78); BILIRUBIN,TOTAL 0.6 MG/DL (0.2-1.0); BLOOD UREA NITROGEN 17 MG/DL (7-18); C REACTIVE PROTEIN QUANTITATIV < 0.30 MG/DL (0.00-0.30); CALCIUM LEVEL 9.1 MG/DL (8.8-10.2); CARBON DIOXIDE LEVEL 30 MEQ/L (21-32); CHLORIDE LEVEL 104 MEQ/L (98-107); CHOLESTEROL LEVEL 102 MG/DL (<200); CHOLESTEROL RISK RATIO 3.777 (<5); CPK CREATINE PHOSPHOKINASE 69 U/L (39-308); CREATININE FOR GFR 1.03 MG/DL (0.70-1.30); FREE T4 0.73 NG/DL (0.76-1.46); GLOMERULAR FILTRATION RATE > 60.0 (>42); GLUCOSE, FASTING 145 MG/DL (70-100); HDL CHOLESTEROL 27 MG/DL (>40); LDL CHOLESTEROL 35 MG/DL (<100); NON-HDL-C 75 MG/DL; POTASSIUM SERUM 4.2 MEQ/L (3.5-5.1); PTH INTACT 98.6 PG/ML (18.5-88.0); SODIUM LEVEL 140 MEQ/L (136-145); TOTAL 25(OH) VITAMIN D 72.1 NG/ML (30.0-100.0); TOTAL PROTEIN 7.5 GM/DL (6.4-8.2); TRIGLYCERIDES LEVEL 198 MG/DL (<150)
[2018-12-05 12:13] LABS: HEMOGLOBIN A1c 7.3 %
== END ==
LOC: M SFHCPLAZ 08:41
PROVIDERS: ATTEND Family Medicine
DX: E55.9 Vitamin D deficiency, unspecified (principal); E53.8 Deficiency of other specified B group vitamins; E11.8 Type 2 diabetes mellitus with unspecified complications; E78.5 Hyperlipidemia, unspecified; Z79.899 Other long term (current) drug therapy

== ENCOUNTER → 2019-01-31 | Outpatient (REF) | payer MEDICARE | LOC: M SFHCCLAY 10:54 | PROVIDERS: ATTEND Urology | DX: C61 Malignant neoplasm of prostate (principal) ==

== ENCOUNTER → 2019-05-04 | Outpatient (REF) | payer MEDICARE ==
[~2019-05-04] MED LIST changes: +METF-791 PO; -METF500T4 PO
== END ==
LOC: M SFHCCLAY 10:58
PROVIDERS: ATTEND Urology
DX: C61 Malignant neoplasm of prostate (principal)

== ENCOUNTER → 2019-06-05 | Outpatient (REF) | payer MEDICARE | LOC: M SFHCCLAY 11:12 | PROVIDERS: ATTEND Family Medicine | DX: E53.8 Deficiency of other specified B group vitamins (principal); E11.8 Type 2 diabetes mellitus with unspecified complications ==

== ENCOUNTER → 2019-08-11 | Outpatient (REF) | payer MEDICARE | LOC: M SFHCCLAY 11:42 | PROVIDERS: ATTEND Urology | DX: C61 Malignant neoplasm of prostate (principal) ==

== ENCOUNTER → 2019-11-09 | Outpatient (REF) | payer MEDICARE ==
[2019-11-09 12:09] LABS: BASO % 0.3 % (0.0-1.0); EOS % 0.2 % (0.0-3.0); HEMATOCRIT 43.6 % (42.0-52.0); HEMOGLOBIN 14.6 g/dl (13.5-17.5); LYMPH # 1.5 10^3/uL (1.5-5.0); MEAN CORPUSCULAR HEMOGLOBIN 32.2 pg (27.0-33.0); MEAN CORPUSCULAR HGB CONC 33.5 g/dl (32.0-36.5); MEAN CORPUSCULAR VOLUME 96.2 fl (80.0-96.0); MONO # 1.3 10^3/uL (0.0-0.8); NEUTROPHILS # 3.4 10^3/uL (1.5-8.5); NEUTROPHILS % 53.9 % (36.0-66.0); PLATELET COUNT, AUTOMATED 179 10^3/uL (150-450); RED BLOOD COUNT 4.53 10^6/uL (4.30-6.10); WHITE BLOOD COUNT 6.3 10^3/uL (4.0-10.0)
[2019-11-09 12:40] LABS: HEMOGLOBIN A1c 7.2 %
[2019-11-09 12:48] LABS: TOTAL 25(OH) VITAMIN D 97.4 NG/ML (30.0-100.0)
[2019-11-09 13:12] LABS: CREATININE, URINE 88.8 MG/DL
[2019-11-09 13:30] LABS: ALT/SGPT 37 U/L (12-78); BILIRUBIN,TOTAL 0.6 MG/DL (0.2-1.0); BLOOD UREA NITROGEN 19 MG/DL (7-18); CALCIUM LEVEL 9.3 MG/DL (8.8-10.2); CARBON DIOXIDE LEVEL 29 MEQ/L (21-32); CHLORIDE LEVEL 104 MEQ/L (98-107); CHOLESTEROL LEVEL 95 MG/DL (<200); CHOLESTEROL RISK RATIO 3.518 (<5); CREATININE FOR GFR 1.21 MG/DL (0.70-1.30); GLOMERULAR FILTRATION RATE > 60.0 (>42); GLUCOSE, FASTING 130 MG/DL (70-100); HDL CHOLESTEROL 27 MG/DL (>40); LDL CHOLESTEROL 37 MG/DL (<100); NON-HDL-C 68 MG/DL; POTASSIUM SERUM 4.6 MEQ/L (3.5-5.1); SODIUM LEVEL 138 MEQ/L (136-145); TOTAL PROTEIN 7.6 GM/DL (6.4-8.2); TRIGLYCERIDES LEVEL 157 MG/DL (<150)
[2019-11-09 13:31] LABS: ALBUMIN 4.2 GM/DL (3.2-5.2); PROSTATIC SPECIFIC AG MONITOR < 0.01 NG/ML (< 4.00)
== END ==
LOC: M SFHCCLAY 09:24
PROVIDERS: ATTEND Urology
DX: I10 Essential (primary) hypertension (principal); E11.8 Type 2 diabetes mellitus with unspecified complications; E78.5 Hyperlipidemia, unspecified; E55.9 Vitamin D deficiency, unspecified; C61 Malignant neoplasm of prostate

== ENCOUNTER → 2020-02-29 | Outpatient (REF) | payer MEDICARE ==
[~2020-02-29] MED LIST changes: -METF-791 PO; +METF-838 PO
[2020-03-29 23:39] LABS: BASO % 0.1 % (0.0-1.0); HEMOGLOBIN 14.8 g/dl (13.5-17.5); LYMPH # 1.5 10^3/uL (1.5-5.0); LYMPH % 19.4 % (24.0-44.0); MEAN CORPUSCULAR HEMOGLOBIN 31.6 pg (27.0-33.0); MEAN CORPUSCULAR HGB CONC 32.2 g/dl (32.0-36.5); MEAN CORPUSCULAR VOLUME 98.3 fl (80.0-96.0); MONO # 1.7 10^3/uL (0.0-0.8); MONO % 20.8 % (0.0-5.0); NEUTROPHILS # 4.4 10^3/uL (1.5-8.5); NEUTROPHILS % 54.9 % (36.0-66.0); PLATELET COUNT, AUTOMATED 201 10^3/uL (150-450); RED BLOOD COUNT 4.68 10^6/uL (4.30-6.10)
[2020-04-27 16:27] LABS: ALBUMIN 4.4 GM/DL (3.2-5.2); ALT/SGPT 39 U/L (12-78); BILIRUBIN,TOTAL 0.9 MG/DL (0.2-1.0); BLOOD UREA NITROGEN 11 MG/DL (7-18); CALCIUM LEVEL 9.4 MG/DL (8.8-10.2); CARBON DIOXIDE LEVEL 31 MEQ/L (21-32); CHLORIDE LEVEL 104 MEQ/L (98-107); CREATININE FOR GFR 1.13 MG/DL (0.70-1.30); GLOMERULAR FILTRATION RATE > 60.0 (>42); GLUCOSE, FASTING 144 MG/DL (70-100); HEMOGLOBIN A1c 6.8 %; NT-PRO BNP 140 PG/ML (<450); POTASSIUM SERUM 4.8 MEQ/L (3.5-5.1); PTH INTACT 77.5 PG/ML (18.5-88.0); SODIUM LEVEL 138 MEQ/L (136-145); TOTAL 25(OH) VITAMIN D 54.3 NG/ML (30.0-100.0); TOTAL PROTEIN 7.8 GM/DL (6.4-8.2); VITAMIN B12 LEVEL 1085 PG/ML (247-911)
== END ==
LOC: M SFHCPLAZ 12:46
PROVIDERS: ATTEND Family Medicine
DX: E55.9 Vitamin D deficiency, unspecified (principal); I11.0 Hypertensive heart disease with heart failure; I50.9 Heart failure, unspecified; E11.9 Type 2 diabetes mellitus without complications; Z12.5 Encounter for screening for malignant neoplasm of prostate
CPT/HCPCS: 36415; 80053; 82306; 82607; 83036; 83880; 83970; 85025; G0103; G0463

== ENCOUNTER → 2020-03-26 | Outpatient (REF) | payer MEDICARE | LOC: M LAB REF 17:00 | PROVIDERS: ATTEND Family Medicine | DX: C44.41 Basal cell carcinoma of skin of scalp and neck (principal); D04.30 Carcinoma in situ of skin of unspecified part of face; C44.310 Basal cell carcinoma of skin of unspecified parts of face | CPT/HCPCS: 88305; G0463 ==

== ENCOUNTER → 2020-06-10 | Outpatient (REF) | payer MEDICARE | LOC: M LABSMT 14:00 | PROVIDERS: ATTEND Urology | DX: C61 Malignant neoplasm of prostate (principal) ==

== ENCOUNTER → 2020-07-03 | Outpatient (REF) | payer MEDICARE | LOC: M LAB REF 18:44 | PROVIDERS: ATTEND Dermatology | DX: T14.90XD Injury, unspecified, subsequent encounter (principal) ==

== ENCOUNTER → 2020-08-22 | Outpatient (REF) | payer MEDICARE | LOC: M LAB REF 10:30 | PROVIDERS: ATTEND Dermatology | DX: C44.41 Basal cell carcinoma of skin of scalp and neck (principal); L90.5 Scar conditions and fibrosis of skin ==

== ENCOUNTER → 2021-05-20 | Outpatient (REF) | payer MEDICARE ==
[2021-05-20 16:02] LABS: BASO % 0.4 % (0.0-1.0); HEMATOCRIT 46.4 % (42.0-52.0); HEMOGLOBIN 15.4 g/dl (13.5-17.5); LYMPH # 1.7 10^3/uL (1.5-5.0); LYMPH % 18.9 % (24.0-44.0); MEAN CORPUSCULAR HEMOGLOBIN 31.4 pg (27.0-33.0); MEAN CORPUSCULAR HGB CONC 33.2 g/dl (32.0-36.5); MEAN CORPUSCULAR VOLUME 94.5 fl (80.0-96.0); MONO # 1.7 10^3/uL (0.0-0.8); NEUTROPHILS # 5.6 10^3/uL (1.5-8.5); NEUTROPHILS % 60.6 % (36.0-66.0); PLATELET COUNT, AUTOMATED 183 10^3/uL (150-450); RED BLOOD COUNT 4.91 10^6/uL (4.30-6.10); WHITE BLOOD COUNT 9.2 10^3/uL (4.0-10.0)
[2021-05-20 16:38] LABS: ALT/SGPT 33 U/L (12-78); BILIRUBIN,TOTAL 0.9 MG/DL (0.2-1.0); BLOOD UREA NITROGEN 20 MG/DL (7-18); CALCIUM LEVEL 9.5 MG/DL (8.8-10.2); CARBON DIOXIDE LEVEL 29 MEQ/L (21-32); CHLORIDE LEVEL 103 MEQ/L (98-107); CHOLESTEROL LEVEL 105 MG/DL (<200); CREATININE FOR GFR 1.16 MG/DL (0.70-1.30); FERRITIN 87 NG/ML (26-388); FREE T4 0.84 NG/DL (0.76-1.46); GLOMERULAR FILTRATION RATE > 60.0 (>42); GLUCOSE, FASTING 203 MG/DL (70-100); HDL CHOLESTEROL 29 MG/DL (>40); LDL CHOLESTEROL 43 MG/DL (<100); NON-HDL-C 76 MG/DL; NT-PRO BNP 1159 PG/ML (<450); POTASSIUM SERUM 4.9 MEQ/L (3.5-5.1); SODIUM LEVEL 137 MEQ/L (136-145); TOTAL PROTEIN 7.3 GM/DL (6.4-8.2); TRIGLYCERIDES LEVEL 163 MG/DL (<150)
[2021-05-20 17:04] LABS: MONO % 18.3 % (2.0-8.0)
[2021-05-20 17:44] LABS: PTH INTACT 95.5 PG/ML (18.5-88.0); TOTAL 25(OH) VITAMIN D 68.4 NG/ML (30.0-100.0)
[2021-05-20 17:45] LABS: VITAMIN B12 LEVEL 1888 PG/ML (247-911)
[2021-05-20 19:46] LABS: HEMOGLOBIN A1c 7.5 %
== END ==
LOC: M SFHCPLAZ 10:05
PROVIDERS: ATTEND Family Medicine
DX: C61 Malignant neoplasm of prostate (principal); I11.0 Hypertensive heart disease with heart failure; E78.5 Hyperlipidemia, unspecified; K76.0 Fatty (change of) liver, not elsewhere classified; I50.30 Unspecified diastolic (congestive) heart failure; E55.9 Vitamin D deficiency, unspecified; E11.8 Type 2 diabetes mellitus with unspecified complications
CPT/HCPCS: 80053; 80061; 82306; 82607; 82728; 83036; 83880; 83970; 84439; 84443; 85025; G0103

== ENCOUNTER → 2021-09-03 | Outpatient (REF) | payer MEDICARE ==
[~2021-09-03] MED LIST changes: +LOSA100T45 PO; -LOSA100T50 PO
== END ==
LOC: M LAB REF 13:41
PROVIDERS: ATTEND Nurse Practitioner Family
DX: B07.9 Viral wart, unspecified (principal); L57.0 Actinic keratosis

== ENCOUNTER → 2021-09-29 | Outpatient (REF) | payer MEDICARE ==
[2021-09-29 12:27] LABS: MALB URINE SIEMENS 12.3 MG/L; MAU/CREAT RATIO 9.1 MCG/MG (0.0-30.0)
[2021-09-29 12:49] LABS: ALBUMIN 4.3 GM/DL (3.2-5.2); ALT/SGPT 41 U/L (12-78); BILIRUBIN,TOTAL 0.6 MG/DL (0.2-1.0); BLOOD UREA NITROGEN 17 MG/DL (7-18); CARBON DIOXIDE LEVEL 31 MEQ/L (21-32); CHLORIDE LEVEL 106 MEQ/L (98-107); CREATININE FOR GFR 1.17 MG/DL (0.70-1.30); FREE T4 0.84 NG/DL (0.76-1.46); GLOMERULAR FILTRATION RATE > 60.0 (>42); GLUCOSE, FASTING 137 MG/DL (70-100); MAGNESIUM LEVEL 2.1 MG/DL (1.8-2.4); NT-PRO BNP 633 PG/ML (<450); POTASSIUM SERUM 5.1 MEQ/L (3.5-5.1); PROSTATIC SPECIFIC AG MONITOR < 0.01 NG/ML (< 4.00); SODIUM LEVEL 139 MEQ/L (136-145); TOTAL PROTEIN 7.5 GM/DL (6.4-8.2)
[2021-09-29 13:13] LABS: HEMOGLOBIN A1c 7.1 %
== END ==
LOC: M SFHCCLAY 08:58
PROVIDERS: ATTEND Family Medicine
DX: E55.9 Vitamin D deficiency, unspecified (principal); I50.30 Unspecified diastolic (congestive) heart failure; E11.8 Type 2 diabetes mellitus with unspecified complications; E66.9 Obesity, unspecified; K76.0 Fatty (change of) liver, not elsewhere classified; C61 Malignant neoplasm of prostate

== ENCOUNTER → 2021-10-31 | Outpatient (REF) | payer MEDICARE | LOC: M SFHCDERM 18:33 | PROVIDERS: ATTEND Dermatology | DX: D23.71 Other benign neoplasm of skin of right lower limb, including hip (principal); D23.72 Other benign neoplasm of skin of left lower limb, including hip | CPT/HCPCS: 11401; 11421; 12031; 12041; 17000; 88305; G0463 ==

== ENCOUNTER → 2022-03-09 | Outpatient (REF) | payer MEDICARE ==
[~2022-03-09] MED LIST changes: +INDA1.253 PO; -INDA125TA PO
[2022-03-09 12:41] LABS: MEAN CORPUSCULAR HEMOGLOBIN 31.5 pg (27.0-33.0); MEAN CORPUSCULAR HGB CONC 32.6 g/dl (32.0-36.5); MEAN CORPUSCULAR VOLUME 96.6 fl (80.0-96.0); PLATELET COUNT, AUTOMATED 189 10^3/uL (150-450); RED BLOOD COUNT 4.45 10^6/uL (4.30-6.10); WHITE BLOOD COUNT 7.2 10^3/uL (4.0-10.0)
[2022-03-09 14:15] LABS: ALBUMIN 4.1 GM/DL (3.2-5.2); ALT/SGPT 29 U/L (12-78); ATYPICAL LYMPH 2 % (0-5); BILIRUBIN,TOTAL 0.7 MG/DL (0.2-1.0); BLOOD UREA NITROGEN 22 MG/DL (7-18); CALCIUM LEVEL 9.7 MG/DL (8.8-10.2); CARBON DIOXIDE LEVEL 27 MEQ/L (21-32); CHLORIDE LEVEL 104 MEQ/L (98-107); CHOLESTEROL LEVEL 94 MG/DL (<200); CHOLESTEROL RISK RATIO 3.241 (<5); GLOMERULAR FILTRATION RATE > 60.0 (>35); GLUCOSE, FASTING 129 MG/DL (70-100); HDL CHOLESTEROL 29 MG/DL (>40); LDL CHOLESTEROL 41 MG/DL (<100); LYMPHOCYTES 23 % (16-44); MAGNESIUM LEVEL 1.9 MG/DL (1.8-2.4); METAMYELOCYTES 1 % (0-0); MONOCYTES 16 % (0-5); NEUTROPHILS 56 % (28-66); NON-HDL-C 65 MG/DL; NT-PRO BNP 175 PG/ML (<450); PLATELET ESTIMATE NORMAL (NORMAL); POTASSIUM SERUM 4.5 MEQ/L (3.5-5.1); SODIUM LEVEL 136 MEQ/L (136-145); TOTAL PROTEIN 7.2 GM/DL (6.4-8.2); TRIGLYCERIDES LEVEL 122 MG/DL (<150)
[2022-03-09 14:38] LABS: PTH INTACT 76.8 PG/ML (18.5-88.0); TOTAL 25(OH) VITAMIN D 49.8 NG/ML (30.0-100.0); VITAMIN B12 LEVEL 665 PG/ML (247-911)
[2022-03-09 15:35] LABS: HEMOGLOBIN A1c 6.9 %
== END ==
LOC: M SFHCCLAY 08:01
PROVIDERS: ATTEND Family Medicine
DX: I50.30 Unspecified diastolic (congestive) heart failure (principal); E11.8 Type 2 diabetes mellitus with unspecified complications; E55.9 Vitamin D deficiency, unspecified; E53.8 Deficiency of other specified B group vitamins; K76.0 Fatty (change of) liver, not elsewhere classified; Z79.899 Other long term (current) drug therapy; Z79.82 Long term (current) use of aspirin; Z79.84 Long term (current) use of oral hypoglycemic drugs; Z79.891 Long term (current) use of opiate analgesic

== ENCOUNTER → 2022-05-28 | Outpatient (REF) | payer MEDICARE | LOC: M SFHCCLAY 11:40 | PROVIDERS: ATTEND Urology | DX: C61 Malignant neoplasm of prostate (principal) ==

== ENCOUNTER → 2022-08-03 | Outpatient (CLI) | payer MEDICARE | LOC: M PLALAB 15:15 | PROVIDERS: ATTEND Family Medicine | DX: E11.8 Type 2 diabetes mellitus with unspecified complications (principal); R05.3 Chronic cough ==

== ENCOUNTER → 2022-08-04 | Outpatient (REF) | payer MEDICARE ==
[2022-08-04 17:20] LABS: INR 1.05; PROTHROMBIN TIME 13.9 SECONDS (12.5-14.5)
[2022-08-04 17:21] LABS: PARTIAL THROMBOPLASTIN TIME 34.7 SECONDS (24.8-34.2)
[2022-08-04 17:24] LABS: HEMATOCRIT 43.2 % (42.0-52.0); HEMOGLOBIN 14.1 g/dl (13.5-17.5); MEAN CORPUSCULAR HEMOGLOBIN 31.8 pg (27.0-33.0); MEAN CORPUSCULAR HGB CONC 32.6 g/dl (32.0-36.5); MEAN CORPUSCULAR VOLUME 97.3 fl (80.0-96.0); PLATELET COUNT, AUTOMATED 187 10^3/uL (150-450); RED BLOOD COUNT 4.44 10^6/uL (4.30-6.10)
[2022-08-04 18:10] LABS: ATYPICAL LYMPH 1 % (0-5); LYMPHOCYTES 26 % (16-44); MONOCYTES 7 % (0-5); NEUTROPHILS 66 % (28-66); PLATELET ESTIMATE NORMAL (NORMAL)
[2022-08-04 19:41] LABS: ALBUMIN 4.2 G/DL (3.2-5.2); ALKALINE PHOSPHATASE 46 U/L (46-116); ALT/SGPT 28 U/L (7.0-40); AST/SGOT 16 U/L (<34); BILIRUBIN,TOTAL 0.6 MG/DL (0.3-1.2); BLOOD UREA NITROGEN 18 MG/DL (9-23); CALCIUM LEVEL 9.6 MG/DL (8.3-10.6); CARBON DIOXIDE LEVEL 29 MMOL/L (20-31); CHLORIDE LEVEL 101 MMOL/L (98-107); CREATININE FOR GFR 0.94 MG/DL (0.70-1.30); GLOMERULAR FILTRATION RATE > 60.0 (>35); GLUCOSE, FASTING 168 MG/DL (74-106); POTASSIUM SERUM 4.3 MMOL/L (3.5-5.1); SODIUM LEVEL 139 MMOL/L (136-145)
[2022-08-04 19:45] LABS: IMMUNOGLOBULIN A 182.9 MG/DL (40-350)
[2022-08-04 19:46] LABS: IMMUNOGLOBULIN G 1166 MG/DL (650-1600)
[2022-08-04 21:17] LABS: HEMOGLOBIN A1c 6.9 % (4.0-6.0)
[2022-08-05 08:59] LABS: IMMUNOGLOBULIN E < 2.5 IU/ML (0-378); IMMUNOGLOBULIN M < 21.0 MG/DL (50-300)
== END ==
LOC: M SFHCPLAZ 10:30
PROVIDERS: ATTEND Family Medicine
DX: R05.3 Chronic cough (principal); E11.8 Type 2 diabetes mellitus with unspecified complications

== ENCOUNTER → 2022-08-24 | Outpatient (CLI) | payer MEDICARE | LOC: M WHC 08:18 | PROVIDERS: ATTEND Family Medicine | DX: K76.89 Other specified diseases of liver (principal); K76.0 Fatty (change of) liver, not elsewhere classified ==

== ENCOUNTER → 2022-09-01 | Outpatient (REF) | payer MEDICARE ==
[2022-09-01 18:13] LABS: COMPLEMENT C3 127.4 MG/DL (90.0-170.0); IMMUNOGLOBULIN A 180.5 MG/DL (40-350)
[2022-09-01 18:14] LABS: COMPLEMENT C4 28.5 MG/DL (12-36); IMMUNOGLOBULIN G 1153 MG/DL (650-1600); IMMUNOGLOBULIN M 26.3 MG/DL (50-300)
[2022-09-01 21:15] LABS: HIV 1&2 SCREEN CENTAUR NEGATIVE (NEGATIVE)
[2022-09-01 21:17] LABS: IMMUNOGLOBULIN E < 2.5 IU/ML (0-378)
== END ==
LOC: M SFHCPLAZ 10:16
PROVIDERS: ATTEND Physician Assistant
DX: D80.4 Selective deficiency of immunoglobulin M [IgM] (principal)

== ENCOUNTER → 2022-09-08 | Outpatient (CLI) | payer MEDICARE ==
[~2022-09-08] MED LIST changes: +ISOVUE-370 76% 100ML VIAL As Ordered ONE
== END ==
LOC: M RAD 13:01
PROVIDERS: ATTEND Physician Assistant
DX: D80.4 Selective deficiency of immunoglobulin M [IgM] (principal); R05.3 Chronic cough; N20.0 Calculus of kidney; K42.9 Umbilical hernia without obstruction or gangrene
CPT/HCPCS: 70486; 74177; Q9967

== ENCOUNTER → 2022-11-27 | Outpatient (REF) | payer MEDICARE ==
[~2022-11-27] MED LIST changes: -ISOVUE-370 76% 100ML VIAL As Ordered ONE; -LOSA100T45 PO; +LOSA100T46 PO
== END ==
LOC: M SFHCDERM 17:04
PROVIDERS: ATTEND Nurse Practitioner Family
DX: C44.229 Squamous cell carcinoma of skin of left ear and external auricular canal (principal); L57.0 Actinic keratosis

== ENCOUNTER → 2023-04-29 | Outpatient (REF) | payer MEDICARE | LOC: M SFHCPLAZ 11:20 | PROVIDERS: ATTEND Family Medicine | DX: D80.4 Selective deficiency of immunoglobulin M [IgM] (principal); E11.8 Type 2 diabetes mellitus with unspecified complications; E78.5 Hyperlipidemia, unspecified; I50.30 Unspecified diastolic (congestive) heart failure ==

== ENCOUNTER → 2023-05-20 | Outpatient (REF) | payer MEDICARE ==
[2023-05-20 13:18] LABS: HEMATOCRIT 45.1 % (42.0-52.0); HEMOGLOBIN 14.9 g/dl (13.5-17.5); MEAN CORPUSCULAR HEMOGLOBIN 32.3 pg (27.0-33.0); MEAN CORPUSCULAR VOLUME 97.6 fl (80.0-96.0); PLATELET COUNT, AUTOMATED 180 10^3/uL (150-450); RED BLOOD COUNT 4.62 10^6/uL (4.30-6.10); WHITE BLOOD COUNT 10.2 10^3/uL (4.0-10.0)
[2023-05-20 13:32] LABS: HEMOGLOBIN A1c 6.7 % (4.0-6.0)
[2023-05-20 13:54] LABS: ALBUMIN 3.9 G/DL (3.2-5.2); ALKALINE PHOSPHATASE 48 U/L (46-116); ALT/SGPT 29 U/L (7.0-40); AST/SGOT 12 U/L (<34); BILIRUBIN,TOTAL 0.5 MG/DL (0.3-1.2); BLOOD UREA NITROGEN 21 MG/DL (9-23); CALCIUM LEVEL 9.3 MG/DL (8.3-10.6); CARBON DIOXIDE LEVEL 29 MMOL/L (20-31); CHLORIDE LEVEL 102 MMOL/L (98-107); CHOLESTEROL LEVEL 100 MG/DL (<200); CHOLESTEROL RISK RATIO 3.59 (<5); CREATININE FOR GFR 0.95 MG/DL (0.70-1.30); FREE T4 0.86 NG/DL (0.89-1.76); GLOMERULAR FILTRATION RATE > 60.0 (>35); GLUCOSE, FASTING 166 MG/DL (74-106); HDL CHOLESTEROL 27.8 MG/DL (>40); LDL CHOLESTEROL 52.8 MG/DL (<100); NON-HDL-C 72.2 MG/DL; SODIUM LEVEL 138 MMOL/L (136-145); THYROID STIMULATING HORMONE 2.636 uIU/ML (0.55-4.78); TRIGLYCERIDES LEVEL 97 MG/DL (<150)
[2023-05-20 14:15] LABS: ATYPICAL LYMPH 3 % (0-5); EOSINOPHILS 1 % (0-3); LYMPHOCYTES 14 % (16-44); MONOCYTES 14 % (0-5); NEUTROPHILS 67 % (28-66)
[2023-05-20 14:16] LABS: PLATELET ESTIMATE NORMAL (NORMAL)
== END ==
LOC: M SFHCCLAY 08:22
PROVIDERS: ATTEND Family Medicine
DX: D80.4 Selective deficiency of immunoglobulin M [IgM] (principal); E11.8 Type 2 diabetes mellitus with unspecified complications; E78.5 Hyperlipidemia, unspecified; I50.30 Unspecified diastolic (congestive) heart failure

== ENCOUNTER → 2023-06-14 | Outpatient (REF) | payer MEDICARE | LOC: M LABSMT 08:54 | PROVIDERS: ATTEND Urology | DX: C61 Malignant neoplasm of prostate (principal) ==

== ENCOUNTER → 2023-09-01 | Outpatient (REF) | payer MEDICARE ==
[2023-09-01 11:39] LABS: BASO % 0.1 % (0.0-1.0); EOS % 0.2 % (0.0-3.0); HEMATOCRIT 42.9 % (42.0-52.0); HEMOGLOBIN 14.2 g/dl (13.5-17.5); LYMPH # 1.5 10^3/uL (1.5-5.0); LYMPH % 17.8 % (24.0-44.0); MEAN CORPUSCULAR HEMOGLOBIN 32.1 pg (27.0-33.0); MEAN CORPUSCULAR HGB CONC 33.1 g/dl (32.0-36.5); MEAN CORPUSCULAR VOLUME 96.8 fl (80.0-96.0); MONO # 1.9 10^3/uL (0.0-0.8); MONO % 21.7 % (2.0-8.0); NEUTROPHILS # 4.5 10^3/uL (1.5-8.5); NEUTROPHILS % 52.9 % (36.0-66.0); PLATELET COUNT, AUTOMATED 203 10^3/uL (150-450); RED BLOOD COUNT 4.43 10^6/uL (4.30-6.10); WHITE BLOOD COUNT 8.6 10^3/uL (4.0-10.0)
[2023-09-01 11:44] LABS: ALBUMIN 3.9 G/DL (3.2-5.2); ALKALINE PHOSPHATASE 44 U/L (46-116); ALT/SGPT 24 U/L (7.0-40); AST/SGOT 11 U/L (<34); BILIRUBIN,TOTAL 0.7 MG/DL (0.3-1.2); BLOOD UREA NITROGEN 15 MG/DL (9-23); CALCIUM LEVEL 8.8 MG/DL (8.3-10.6); CARBON DIOXIDE LEVEL 28 MMOL/L (20-31); CHLORIDE LEVEL 105 MMOL/L (98-107); CHOLESTEROL LEVEL 94 MG/DL (<200); CHOLESTEROL RISK RATIO 4.21 (<5); GLOMERULAR FILTRATION RATE > 60.0 (>35); GLUCOSE, FASTING 148 MG/DL (74-106); HDL CHOLESTEROL 22.3 MG/DL (>40); LDL CHOLESTEROL 48.7 MG/DL (<100); NON-HDL-C 71.7 MG/DL; POTASSIUM SERUM 4.4 MMOL/L (3.5-5.1); SODIUM LEVEL 139 MMOL/L (136-145); TOTAL PROTEIN 6.9 G/DL (5.7-8.2); TRIGLYCERIDES LEVEL 115 MG/DL (<150)
[2023-09-01 11:48] LABS: FREE T4 0.81 NG/DL (0.89-1.76); VITAMIN B12 LEVEL 480 PG/ML (211-911)
[2023-09-01 11:49] LABS: THYROID STIMULATING HORMONE 1.801 uIU/ML (0.55-4.78); TOTAL 25(OH) VITAMIN D 34.2 NG/ML (20.0-100.0)
[2023-09-01 11:57] LABS: HEMOGLOBIN A1c 6.7 % (4.0-6.0)
[2023-09-01 12:04] LABS: CREATININE, URINE 90.6 MG/DL
[2023-09-01 12:05] LABS: MAU/CREAT RATIO 17.6 MCG/MG (0.0-30.0)
== END ==
LOC: M SFHCCLAY 08:55
PROVIDERS: ATTEND Family Medicine
DX: E11.8 Type 2 diabetes mellitus with unspecified complications (principal); I10 Essential (primary) hypertension; E78.5 Hyperlipidemia, unspecified; E55.9 Vitamin D deficiency, unspecified; E53.8 Deficiency of other specified B group vitamins; Z13.29 Encounter for screening for other suspected endocrine disorder

== ENCOUNTER → 2023-09-13 | Outpatient (REF) | payer MEDICARE | LOC: M SFHCPLAZ 10:15 | PROVIDERS: ATTEND Family Medicine | DX: K74.00 Hepatic fibrosis, unspecified (principal); E55.9 Vitamin D deficiency, unspecified; E11.8 Type 2 diabetes mellitus with unspecified complications ==

== ENCOUNTER → 2023-09-22 | Outpatient (CLI) | payer MEDICARE | LOC: M RAD 09:09 | PROVIDERS: ATTEND Family Medicine | DX: K74.00 Hepatic fibrosis, unspecified (principal); K76.89 Other specified diseases of liver ==

== ENCOUNTER → 2024-02-07 | Outpatient (REF) | payer MEDICARE ==
[2024-02-07 12:11] LABS: BASO % 0.4 % (0.0-1.0); HEMATOCRIT 43.6 % (42.0-52.0); HEMOGLOBIN 14.1 g/dl (13.5-17.5); LYMPH # 1.8 10^3/uL (1.5-5.0); LYMPH % 21.5 % (24.0-44.0); MEAN CORPUSCULAR HEMOGLOBIN 30.6 pg (27.0-33.0); MEAN CORPUSCULAR HGB CONC 32.3 g/dl (32.0-36.5); MEAN CORPUSCULAR VOLUME 94.6 fl (80.0-96.0); MONO # 1.8 10^3/uL (0.0-0.8); MONO % 21.2 % (2.0-8.0); NEUTROPHILS # 4.3 10^3/uL (1.5-8.5); NEUTROPHILS % 50.2 % (36.0-66.0); PLATELET COUNT, AUTOMATED 194 10^3/uL (150-450); RED BLOOD COUNT 4.61 10^6/uL (4.30-6.10); WHITE BLOOD COUNT 8.5 10^3/uL (4.0-10.0)
[2024-02-07 12:13] LABS: ALBUMIN 4.1 G/DL (3.2-5.2); ALKALINE PHOSPHATASE 52 U/L (46-116); ALT/SGPT 30 U/L (7.0-40); AST/SGOT 12 U/L (<34); BILIRUBIN,TOTAL 0.8 MG/DL (0.3-1.2); BLOOD UREA NITROGEN 17 MG/DL (9-23); CALCIUM LEVEL 9.5 MG/DL (8.3-10.6); CARBON DIOXIDE LEVEL 27 MMOL/L (20-31); CHLORIDE LEVEL 106 MMOL/L (98-107); GLOMERULAR FILTRATION RATE > 60.0 (>35); GLUCOSE, FASTING 143 MG/DL (74-106); MAGNESIUM LEVEL 1.7 MG/DL (1.8-2.4); POTASSIUM SERUM 4.4 MMOL/L (3.5-5.1); SODIUM LEVEL 137 MMOL/L (136-145)
[2024-02-07 12:16] LABS: FERRITIN 79.3 NG/ML (10.5-307.3)
[2024-02-07 12:24] LABS: HEMOGLOBIN A1c 6.9 % (4.0-6.0)
== END ==
LOC: M SFHCCLAY 08:24
PROVIDERS: ATTEND Urology
DX: C61 Malignant neoplasm of prostate (principal); E11.8 Type 2 diabetes mellitus with unspecified complications; K76.0 Fatty (change of) liver, not elsewhere classified; E53.8 Deficiency of other specified B group vitamins; I12.9 Hypertensive chronic kidney disease with stage 1 through stage 4 chronic kidney disease, or unspecified chronic kidney disease; I50.32 Chronic diastolic (congestive) heart failure

== ENCOUNTER → 2024-02-08 | Outpatient (REF) | payer MEDICARE | LOC: M SFHCPLAZ 13:12 | PROVIDERS: ATTEND Family Medicine | DX: K74.00 Hepatic fibrosis, unspecified (principal); E11.8 Type 2 diabetes mellitus with unspecified complications; E53.8 Deficiency of other specified B group vitamins; I50.32 Chronic diastolic (congestive) heart failure ==

== ENCOUNTER → 2024-06-01 | Outpatient (REF) | payer MEDICARE | LOC: M SFHCCLAY 08:01 | PROVIDERS: ATTEND Urology | DX: C61 Malignant neoplasm of prostate (principal) ==

== ENCOUNTER → 2024-06-13 | Outpatient (REF) | payer MEDICARE ==
[2024-06-13 11:59] LABS: BASO % 0.3 % (0.0-1.0); EOS % 0.2 % (0.0-3.0); HEMATOCRIT 46.6 % (42.0-52.0); HEMOGLOBIN 15.2 g/dl (13.5-17.5); LYMPH # 1.4 10^3/uL (1.5-5.0); LYMPH % 22.7 % (24.0-44.0); MEAN CORPUSCULAR HGB CONC 32.6 g/dl (32.0-36.5); MEAN CORPUSCULAR VOLUME 94.9 fl (80.0-96.0); MONO # 1.6 10^3/uL (0.0-0.8); MONO % 25.2 % (2.0-8.0); NEUTROPHILS % 46.9 % (36.0-66.0); PLATELET COUNT, AUTOMATED 180 10^3/uL (150-450); RED BLOOD COUNT 4.91 10^6/uL (4.30-6.10); WHITE BLOOD COUNT 6.3 10^3/uL (4.0-10.0)
[2024-06-13 12:25] LABS: ALBUMIN 4.3 G/DL (3.2-5.2); ALKALINE PHOSPHATASE 49 U/L (40-129); ALT/SGPT 39 U/L (7.0-40); AST/SGOT 17 U/L (<34); BILIRUBIN,TOTAL 1.1 MG/DL (0.3-1.2); BLOOD UREA NITROGEN 11 MG/DL (9-23); CARBON DIOXIDE LEVEL 29 MMOL/L (20-31); CHLORIDE LEVEL 104 MMOL/L (98-107); CHOLESTEROL LEVEL 95 MG/DL (<200); CHOLESTEROL RISK RATIO 3.34 (<5); CREATININE FOR GFR 0.89 MG/DL (0.70-1.30); GLOMERULAR FILTRATION RATE > 60.0 (>35); GLUCOSE, FASTING 135 MG/DL (74-106); HDL CHOLESTEROL 28.4 MG/DL (>40); LDL CHOLESTEROL 42.4 MG/DL (<100); NON-HDL-C 66.6 MG/DL; POTASSIUM SERUM 4.3 MMOL/L (3.5-5.1); SODIUM LEVEL 140 MMOL/L (136-145); TOTAL PROTEIN 8.1 G/DL (5.7-8.2); TRIGLYCERIDES LEVEL 121 MG/DL (<150)
== END ==
LOC: M SFHCPLAZ 08:04
PROVIDERS: ATTEND Family Medicine
DX: K74.00 Hepatic fibrosis, unspecified (principal); E11.8 Type 2 diabetes mellitus with unspecified complications; E53.8 Deficiency of other specified B group vitamins; I50.32 Chronic diastolic (congestive) heart failure

== ENCOUNTER → 2024-08-31 | Outpatient (REF) | payer MEDICARE ==
[~2024-08-31] MED LIST changes: -POTA10808 PO; +POTA10809 PO
== END ==
LOC: M LABDRAWC 11:09
PROVIDERS: ATTEND Urology
DX: C61 Malignant neoplasm of prostate (principal)

== ENCOUNTER → 2025-05-15 | Outpatient (REF) | payer MEDICARE ==
[2025-05-15 12:38] LABS: BASO # 0.0 10^3/uL (0.0-0.2); BASO % 0.3 % (0.0-1.0); EOS # 0.0 10^3/uL (0.0-0.5); EOS % 0.0 % (0.0-3.0); LYMPH # 1.4 10^3/uL (1.5-5.0); LYMPH % 20.7 % (24.0-44.0); MONO # 1.6 10^3/uL (0.0-0.8); MONO % 24.2 % (2.0-8.0); NEUTROPHILS # 3.3 10^3/uL (1.5-8.5); NEUTROPHILS % 49.8 % (36.0-66.0); PLATELET COUNT, AUTOMATED 199 10^3/uL (150-450)
[2025-05-15 12:39] LABS: INR 1.01
[2025-05-15 12:45] LABS: ESTIMATED AVERAGE GLUCOSE 151.0 MG/DL (60-110); TOTAL 25(OH) VITAMIN D 33.0 NG/ML (20.0-100.0)
[2025-05-15 12:54] LABS: ALT/SGPT 24 U/L (7.0-40); AST/SGOT 16 U/L (<34); CALCIUM LEVEL 9.6 MG/DL (8.3-10.6); CARBON DIOXIDE LEVEL 29 MMOL/L (20-31); CHLORIDE LEVEL 102 MMOL/L (98-107); CREATININE FOR GFR 0.98 MG/DL (0.70-1.30); GLOMERULAR FILTRATION RATE 76.5 (>35); POTASSIUM SERUM 4.6 MMOL/L (3.5-5.1); PTH INTACT 109.8 PG/ML (18.5-88.0); SODIUM LEVEL 141 MMOL/L (136-145)
[2025-05-16 16:55] LABS: CREATININE, URINE 87.8 MG/DL; MALB URINE SIEMENS 16.0 MG/L; MAU/CREAT RATIO 18.2 MCG/MG (0.0-30.0)
== END ==
LOC: M SFHCPLAZ 08:10
PROVIDERS: ATTEND Family Medicine
DX: K74.00 Hepatic fibrosis, unspecified (principal); E11.8 Type 2 diabetes mellitus with unspecified complications; E53.8 Deficiency of other specified B group vitamins; I50.32 Chronic diastolic (congestive) heart failure; E55.9 Vitamin D deficiency, unspecified